=== PATIENT | female | born 1965 | race American Indian/Alaskan Native ===

== ENCOUNTER 2021-12-23 09:00 | Day surgery (SDC) | payer MEDICARE, BC, MEDICAID ==
[~2021-12-23] VITALS: Ht 160 cm; Wt 55.0 kg
[~2021-12-23 09:00] MED LIST: ALEVE220 M1 PO; CIPROFLOXACIN500 MG PO; HYDROCODON-ACE1 EA14; IBUPROFEN800 MG PO; MAPAP325 MG PO; MOTRIN IB200 MG PO; NAPROSYN500 MG PO; NIFEDIPINE ER30 MG PO; NIFEDIPINE20 MG PO; NITRO-DUR1 EAC1 TD; NORCO 5-325 TA1 EACH PO; NORCO 7.5-3251 EACH PO; OMEPRAZOLE20 MG PO; PAXIL10 MG PO; PENTOXIFYLLINE400 MG PO; PERCOCET 5-3251 EACH PO; PRAZOSIN HCL1 MG PO; PREDNISONE20 MG PO; REGLAN5 MG PO; SILDENAFIL20 MG PO; TRAMADOL HCL50 MG; ULTRAM50 MG PO; VITAMIN D21250 MCG PO; ZESTRIL5 MG PO
[2021-12-23] MEDS ORDERED: NEURONTIN100 MG PO (09:18)
[2021-12-23] MEDS ORDERED: GABAPENTIN300 MG PO (09:19)
--- NOTE | 2021-12-23 09:22 | NUR ---
THIS RN TO ROOM TO ASSIST WITH IV START. IV STARTED PER PROTOCOL, BRISK BLOOD RETURN NOTED. IV FLUIDS STARTED BY ALEKSANDAR ASHFORD. NO ADDITIONAL NEEDS AT THIS TIME. CALL LIGHT WITHIN REACH. BED RAILS UP.
[2021-12-23] MEDS ORDERED: HYDROCODON-ACE1 EA10 PO (11:26)
--- NOTE | 2021-12-23 12:11 | NUR ---
1205: PT RETURNS TO UNIT VIA STRETCHER FROM PACU, AWAKE AND ALERT ON ARRIVAL. VSS, RESP EVEN AND UNLABORED. REPORTS DAMIAN PAIN LEVEL, 4/10 AND DENIES NAUSEA. DRESSING C/D/I, CMS WNL. ICE WATER AND CRACKERS PROVIDED. POC DISCUSSED AND PT AGREEABLE AT THIS TIME. NO NEEDS VOICED, CALL LIGHT WITHIN REACH
--- NOTE | 2021-12-23 12:12 | NUR ---
12/23/21 1212 Dinora Brooks 1128 PT ARRIVED IN PACU SLEEPY WITH NO C/O'S. R HAND ELEVATED ON PILLOW. 1138 C/O R THUMB PAIN 9/10. FENTANYL 50MCG GIVEN IVP. 1147 NO CHANGE IN PAIN LEVEL. FENTANYL 50MCG GIVEN IVP. 1155 PAIN DOWN TO 4/10. 1205 TO DS. REPORT GIVEN TO RN.
--- NOTE | 2021-12-23 13:42 | NUR ---
[id number]-INQTOMF LAYING IN BED WITH EYES CLOSED. RESP EVEN AND UNLABORED. RATES PAIN 4/10 THAT COMES AND GOES. PATEINT WOULD LIKE SOMETHING FOR PAIN. DENIES NAUSEA. DRESSING WAS CLEAN, DRY, AND INTACAT. PATIENT TAKING SIPS OF WATER AND EATING CRACKERS. IN ROOM. CALL LIGHT WITHIN REACH.
--- NOTE | 2021-12-23 13:44 | NUR ---
[id number]-ACUO MEDICATION GIVEN PER EMAR. CALL LIGHT WITHIN REACH.
--- NOTE | 2021-12-23 14:05 | NUR ---
PATIENT RATES PAIN 2/10. AT BEDSIDE. CALL LIGHT WITHIN REACH.
--- NOTE | 2021-12-23 14:38 | NUR ---
PT RESTING IN BED AWAKE WITH FAMILY AT BEDSIDE. PT DENIES ANY NAUSEA WHEN ASKED, RATES PAIN 2/10 IN RIGHT HAND. PT STATES URGE TO VOID AND THIS RN ASSISTS PT TO BATHROOM. PT HAS STEADY GAIT AND ABLE TO VOID APPROX 350 MLS LIGHT YELLOW URINE. PT BACK TO DS RM 4 TO GET DRESSED, ENCOURAGED TO USE CALL LIGHT WITH ANY NEEDS.
--- NOTE | 2021-12-23 15:05 | NUR ---
[id number]-ANREBRQL PATIENT WITH DISCHARGE INSTRUCTIONS. ALL QUESTIONS ANSWERED. PATIENT AMBULATES TO WHEELCHAIR AND RIDE PROVIDED TO FRONT OF HOSPITAL WHERE WAS WAITING WITH THE CAR.
--- NOTE | 2021-12-25 15:10 | PATH ---
[facility] [address] [facility] [place], [place] [address] Signed SPECIMEN(S): A RIGHT THUMB MASS SPECIMEN SOURCE: A. RIGHT THUMB MASS CLINICAL HISTORY: Scleroderma with significant calcification soft tissue FINAL PATHOLOGIC DIAGNOSIS: Right thumb mass: - Benign skin with intradermal fibrosclerosis and heterotopic calcification. JVR:smh:C2NR MICROSCOPIC EXAMINATION: Histologic sections of all submitted blocks are examined by light microscopy. These findings, together with the gross examination, support the pathologic diagnosis. GROSS DESCRIPTION: The specimen, labeled "Savannah Kennedy," and designated on the requisition "right thumb mass," is received in formalin and consists of a 1.5 x 1.0 x 0.7 cm white rubbery nodule that is partially surfaced by a 1.6 x 0.6 cm ellipse of skin. The skin surface is pale pink and smooth with a 0.5 cm defect. The specimen is inked and sectioned revealing a 0.7 x 0.6 x 0.6 cm cystic structure that contains a white chalky material. The specimen is entirely submitted in cassette (A1). FB (under the direct supervision of a pathologist) The Gross Description was prepared using a voice recognition system. The report was reviewed for accuracy; however, sound-alike word errors, addition and/or deletions may occur. If there is any question about this report, please contact Client Services. PERFORMING LABORATORY: The technical component was performed by [facility], [address] [place] [id number] (CLIA# [id number]). Professional interpretation was performed by [facility], [address] [place] [id number] (CLIA#: [id number]). Diagnostician: Bassam Rodriguez MD Pathologist PATIENT NAME: SAVANNAH KENNEDY PATHOLOGY DATE OF : 69 REPORT #: [id number] PHYSICIAN: [facility] PCP: YESI LEMON MD REPORT IS CONFIDENTIAL AND NOT TO BE RELEASED WITHOUT AUTHORIZATION [address] [address] Signed Electronically Signed 12/25/2021 Copies: ~ PATIENT NAME: SAVANNAH KENNEDY PATHOLOGY DATE OF : 69 REPORT #: [id number] PHYSICIAN: [facility]OLOG[facility] PCP: YESI LEMON MD REPORT IS CONFIDENTIAL AND NOT TO BE RELEASED WITHOUT AUTHORIZATION
--- NOTE | 2021-12-30 08:41 | OR ---
[facility] [address] [facility] [place], [place] [address] Signed DATE OF OPERATION: 12/23/2021 SURGEON: Jamee Jalloh MD PREOPERATIVE DIAGNOSIS: CREST syndrome with calcific deposit, right hand. POSTOPERATIVE DIAGNOSIS: CREST syndrome with calcific deposit, right hand. PROCEDURE PERFORMED: Excision of calcific mass, right hand. REMELT SUGAR BOILER: Rachel Crabtree PA-C. ANESTHESIA: General. BLOOD LOSS: 55 mL. TOURNIQUET TIME: No tourniquet was applied. SPECIMEN: Mass was excised and sent to Pathology. BRIEF HISTORY: Savannah is a 56-year-old female with a history of CREST syndrome. She had developed several calcium deposits on her right hand. The biggest being in the 1st webspace lying along the ulnar border of the thumb, proximal phalanx. This was eroding through the skin and there was calcium draining out. She had lost several fingers to Raynaud and had significant problems with this, although it was well controlled currently. She was advised that surgery on the hand could set off another Raynaud attack and she understood and wished to proceed. Efforts were made to keep the patient as warm as possible during the case with Casimiro warmer wrapping her head and keeping the room warm. The hand was prepped and draped in a standard sterile fashion. Again, no tourniquet was placed. The mass was marked out and the elliptical incision was fashioned around it. This was taken through the skin and subcutaneous tissue. We did anesthetize the webspace utilizing 5 Electronically Signed By: JAMEE JALLOH MD 12/30/21 0841 PATIENT NAME: SAVANNAH KENNEDY OPERATIVE REPORT DATE OF : 69 REPORT #: [id number] PHYSICIAN: JAMEE JALLOH MD PCP: YESI LEMON MD REPORT IS CONFIDENTIAL AND NOT TO BE RELEASED WITHOUT AUTHORIZATION [facility] [address] [place], [place] [address] Signed mL of 0.25% plain Marcaine. The mass was then dissected free of underlying soft tissue structures. No neurovascular structures were noted. It was then excised totally and passed off the table. There was a little bit of permeative calcium in the soft tissue on the volar aspect of the incision, this was carefully debrided using the rongeur. Once we had sufficiently removed all we could, the wound was copiously irrigated with normal saline, closed with 3-0 nylon and dressed with Adaptic, ABD and Rubin wrap. She tolerated the procedure well. All sponge, needle, and instrument counts were correct. Jamee Jalloh MD BA/IRWINL /[id number] Copies: ~ Electronically Signed By: JAMEE JALLOH MD 12/30/21 0841 PATIENT NAME: SAVANNAH KENNEDY OPERATIVE REPORT DATE OF : 69 REPORT #: [id number] PHYSICIAN: JAMEE JALLOH MD PCP: YESI LEMON MD REPORT IS CONFIDENTIAL AND NOT TO BE RELEASED WITHOUT AUTHORIZATION
== END 2021-12-23 14:50 | disposition home or self-care (01) ==
LOC: DS 09:00
PROVIDERS: ATTEND Specialist
PROC: 0JBJ0ZZ Excision of Right Hand Subcutaneous Tissue and Fascia, Open Approach (ICD-10-PCS; principal; 2021-12-23 10:15)
DX: M34.1 CR(E)ST syndrome (principal); Z90.49 Acquired absence of other specified parts of digestive tract; Z90.710 Acquired absence of both cervix and uterus
CPT/HCPCS: 01810; 88305; J0131; J0690; J2001; J2405; J2704; J3010; J7121